=== PATIENT | female | born 1965 | race Caucasian/White ===

== ENCOUNTER 2019-01-20 10:41 | Inpatient (IN) ==
--- NOTE | 2019-01-20 10:48 | Emergency Department Note ---
Disposition Clinical Impression: Atrial fibrillation with rapid ventricular response, Tumor DKA (diabetic ketoacidoses) Qualifiers: Diabetes mellitus type: type 1 Diabetes mellitus complication detail: without coma Qualified Code(s): E10.10 - Type 1 diabetes mellitus with ketoacidosis without coma Disposition: Admitted As Inpatient Condition: Serious Time of Disposition: 18:05 General Adult HPI - General Stated complaint: high blood sugar Time Seen by Provider: 01/20/19 10:42 Nursing Notes Reviewed: Yes Vital Signs Reviewed: Yes - Related Data Home Medications Medication Instructions Recorded Confirmed Tizanidine HCl [Zanaflex] 4 mg PO TID PRN 01/17/19 01/20/19 Amoxicillin [Amoxil] 500 mg PO BID 01/20/19 01/20/19 Lisinopril/Hydrochlorothiazide 1 each PO DAILY 01/20/19 01/20/19 [Lisinopril-Hctz 10-12.5 mg Tab] Pioglitazone [Actos] 30 mg PO DAILY 01/20/19 01/20/19 Previous Rx's Medication Instructions Recorded metFORMIN [Glucophage] 500 mg PO BIDWM #14 tablet 01/17/19 Allergies Allergy/AdvReac Type Severity Reaction Status Date / Time No Known Allergies Allergy Verified 01/17/19 11:32 Past Medical History - Past Medical History Medical history: Reports: no medical history Psychiatric history: Reports: no psych history - Social History Smoking Status: Never smoker Smokeless Tobacco Status: No Alcohol use: Reports: none Drug use: Reports: unknown Course Vital Signs Temperature 98.3 F 01/20/19 11:08 Pulse Rate 141 01/20/19 11:08 Respiratory Rate 30 01/20/19 11:08 Blood Pressure 155/107 01/20/19 11:08 O2 Sat by Pulse Oximetry 100 01/20/19 11:08 Temperature 97.6 F 01/20/19 16:15 Pulse Rate 120 01/20/19 17:00 Respiratory Rate 29 01/20/19 17:00 Blood Pressure 138/70 01/20/19 17:00 O2 Sat by Pulse Oximetry 95 01/20/19 17:00 Oxygen Delivery Oxygen Delivery Nasal Cannula Medical Decision Making - MDM Narrative Medical decision making narrative: 1455 hrs.: Still pending a lactate and beta hydroxybutyrate from labs were called and asked him about that. Since she has had a recent UTI with a 22,000 white count were in a go ahead and start her on Rocephin here urine to be cultured blood is cultured. She has gotten 3 L of fluids. She is getting insulin. And she will need admission. 1500 hrs.: Patient was tachycardic on the monitor repeated an EKG and she is in A. fib with RVR rates in the 170s. I have looked through her chart and I do not see a history of atrial fibrillation. We will see if we get another IV in her and started on some Cardizem in addition to the medication she is on now. 1540 hrs.: Repeat EKG shows a sinus tachycardia with a rate of 120 has a QRS of 83 QTc of 45 does have a left axis deviation and low voltage throughout no signs of acute ischemia or ectopy. Did have atrial fibrillation and that has now resolved since patient is on fluids and diltiazem. Chest X-Ray 01/20/19 10:43 IMPRESSION: Normal chest. 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 Surgical consultation is recommended. No acute vascular abnormality. Nonspecific 3 mm right lower lobe nodule. D/ / 01/20/2019 15:02:28 Sterling Ugalde MD / trey Interpreting Provider: Sterling Ugalde MD 1545 hrs. lactate is normal but was drawn after she had 3 L of fluid. Also her beta hydroxybutyrate is elevated along with her blood sugar and acidosis consistent with DKA. Were paging surgery to discuss with them this mass and then bringing her into the hospital for admission. EKG from 1500 hrs. shows a atrial fibrillation with a rate of 177, QRS of 84, QTC 445, appears to be a slight left axis deviation. No ectopy. - Lab Data Result diagrams: 01/20/19 13:01 01/20/19 16:55 Lab Results 01/20/19 01/20/19 01/20/19 Range/Units 10:50 11:50 12:03 WBC (4.3-11.1) K/mcL RBC (3.82-4.97) M/mcL Hgb (11.5-15.4) g/dL Hct (35.3-44.9) % MCV (83.0-100.0) fL MCH (28.0-33.3) pg MCHC (31.6-35.5) g/dL RDW (11.5-14.5) % Plt Count (140-400) K/mcL MPV (9.4-12.4) fL Seg Neutrophils % % Band Neutrophils % (0-4) % Lymphocytes % % Monocytes % % Neutrophils # (1.6-8.9) K/mcL Lymphocytes # (0.6-4.6) K/mcL Monocytes # (0.0-1.3) K/mcL Platelet Estimate (Normal) VBG pH (7.32-7.42) pH Units VBG pCO2 (41-51) mmHg VBG pO2 (25-50) mmHg VBG HCO3 (21-27) mEq/L Sodium 132 L (136-145) mEq/L Potassium 3.6 (3.5-5.1) mEq/L Chloride 102 (98-107) mEq/L Carbon Dioxide 4 L* (23-29) mEq/L BUN 12 (6-20) mg/dL Creatinine 0.76 (0.60-1.20) mg/dL Est GFR ( Amer) > 60 (> 60) Est GFR (Non-Af Amer) > 60 (> 60) BUN/Creatinine Ratio 16 (6-26) Glucose 432 H (70-105) mg/dL Calculated Osmolality 292 (280-300) Lactic Acid (0.5-2.2) mmol/L Calcium 9.3 (8.6-10.3) mg/dL Total Bilirubin 0.3 (0.3-1.0) mg/dL AST 7 L (13-39) Units/L ALT 8 (7-52) Units/L Alkaline Phosphatase 82 (34-104) Units/L Troponin I 0.03 (< 0.04) ng/mL Serum Total Protein 7.9 (6.4-8.9) g/dL Albumin 3.0 L (3.5-5.7) g/dL Globulin 4.9 H (2.4-3.5) g/dL Albumin/Globulin Ratio 0.6 L (1.1-2.2) Beta-Hydroxybutyric Acd (0.02-0.27) mmol/L Urine Color Yellow (Yellow) Urine Clarity Turbid A (Clear) Urine pH 5.5 (5.0-8.0) pH Units Ur Specific [place] 1.021 (1.010-1.025) Urine Protein 100 H (Neg-Trace) mg/dL Urine Glucose (UA) >=1000 H (Normal) mg/dL Urine Ketones >=160 H (Negative) mg/dL Urine Blood Moderate H (Negative) Urine Nitrite Negative (Negative) Urine Bilirubin Negative (Negative) Urine Urobilinogen Normal (Normal) mg/dL Ur Leukocyte Esterase Large H (Negative) Urine Microscopic RBC 5-15 H (0-3) per hpf Urine Microscopic WBC TNTC H (0-3) per hpf Ur Squamous Epith Cells Moderate H (None-Few) per lpf Urine Bacteria None Seen (None-Few) per hpf Hyaline Casts None Seen (None-Few) per lpf Urine Yeast Moderate H (None Seen) per hpf Ur Culture Indicated? YES A (NO) Urine Opiates Screen Negative (Nghnpc=053) ng/mL Ur Buprenorphine Scrn Negative (Cutoff=5) ng/mL Ur Barbiturates Screen Negative (Pbypto=636) ng/mL Ur Phencyclidine Scrn Negative (Cutoff=25) ng/mL Ur Amphetamines Screen Negative (Tlisxu=1692) ng/mL U Benzodiazepines Scrn Negative (Gkuemj=368) ng/mL Urine Cocaine Screen Negative (Cutoff= 300) ng/mL U Marijuana (THC) Screen Negative (Cutoff = 50) ng/mL Ur Drug Screen Interp See Below Specimen Rejected Person Notif of Crit 01/20/19 01/20/19 01/20/19 Range/Units 12:17 12:35 13:01 WBC 22.6 H D (4.3-11.1) K/mcL RBC 4.69 (3.82-4.97) M/mcL Hgb 12.4 (11.5-15.4) g/dL Hct 42.5 (35.3-44.9) % MCV 90.6 D (83.0-100.0) fL MCH 26.4 L (28.0-33.3) pg MCHC 29.2 L (31.6-35.5) g/dL RDW 13.2 (11.5-14.5) % Plt Count 395 (140-400) K/mcL MPV 9.7 (9.4-12.4) fL Seg Neutrophils % 84.0 % Band Neutrophils % 8.0 H (0-4) % Lymphocytes % 2.0 % Monocytes % 6.0 % Neutrophils # 20.8 H (1.6-8.9) K/mcL Lymphocytes # 0.5 L (0.6-4.6) K/mcL Monocytes # 1.4 H (0.0-1.3) K/mcL Platelet Estimate Normal (Normal) VBG pH 7.14 L* (7.32-7.42) pH Units VBG pCO2 14 L (41-51) mmHg VBG pO2 171 H (25-50) mmHg VBG HCO3 5 L (21-27) mEq/L Sodium (136-145) mEq/L Potassium (3.5-5.1) mEq/L Chloride (98-107) mEq/L Carbon Dioxide (23-29) mEq/L BUN (6-20) mg/dL Creatinine (0.60-1.20) mg/dL Est GFR ( Amer) (> 60) Est GFR (Non-Af Amer) (> 60) BUN/Creatinine Ratio (6-26) Glucose (70-105) mg/dL Calculated Osmolality (280-300) Lactic Acid (0.5-2.2) mmol/L Calcium (8.6-10.3) mg/dL Total Bilirubin (0.3-1.0) mg/dL AST (13-39) Units/L ALT (7-52) Units/L Alkaline Phosphatase (34-104) Units/L Troponin I (< 0.04) ng/mL Serum Total Protein (6.4-8.9) g/dL Albumin (3.5-5.7) g/dL Globulin (2.4-3.5) g/dL Albumin/Globulin Ratio (1.1-2.2) Beta-Hydroxybutyric Acd (0.02-0.27) mmol/L Urine Color (Yellow) Urine Clarity (Clear) Urine pH (5.0-8.0) pH Units Ur Specific [place] (1.010-1.025) Urine Protein (Neg-Trace) mg/dL Urine Glucose (UA) (Normal) mg/dL Urine Ketones (Negative) mg/dL Urine Blood (Negative) Urine Nitrite (Negative) Urine Bilirubin (Negative) Urine Urobilinogen (Normal) mg/dL Ur Leukocyte Esterase (Negative) Urine Microscopic RBC (0-3) per hpf Urine Microscopic WBC (0-3) per hpf Ur Squamous Epith Cells (None-Few) per lpf Urine Bacteria (None-Few) per hpf Hyaline Casts (None-Few) per lpf Urine Yeast (None Seen) per hpf Ur Culture Indicated? (NO) Urine Opiates Screen (Kffipp=328) ng/mL Ur Buprenorphine Scrn (Cutoff=5) ng/mL Ur Barbiturates Screen (Ohhgds=655) ng/mL Ur Phencyclidine Scrn (Cutoff=25) ng/mL Ur Amphetamines Screen (Xrjfas=6846) ng/mL U Benzodiazepines Scrn (Wqiczy=895) ng/mL Urine Cocaine Screen (Cutoff= 300) ng/mL U Marijuana (THC) Screen (Cutoff = 50) ng/mL Ur Drug Screen Interp Specimen Rejected MCV Delta Person Notif of Emily VEGA 01/20/19 01/20/19 Range/Units 15:12 15:12 WBC (4.3-11.1) K/mcL RBC (3.82-4.97) M/mcL Hgb (11.5-15.4) g/dL Hct (35.3-44.9) % MCV (83.0-100.0) fL MCH (28.0-33.3) pg MCHC (31.6-35.5) g/dL RDW (11.5-14.5) % Plt Count (140-400) K/mcL MPV (9.4-12.4) fL Seg Neutrophils % % Band Neutrophils % (0-4) % Lymphocytes % % Monocytes % % Neutrophils # (1.6-8.9) K/mcL Lymphocytes # (0.6-4.6) K/mcL Monocytes # (0.0-1.3) K/mcL Platelet Estimate (Normal) VBG pH (7.32-7.42) pH Units VBG pCO2 (41-51) mmHg VBG pO2 (25-50) mmHg VBG HCO3 (21-27) mEq/L Sodium (136-145) mEq/L Potassium (3.5-5.1) mEq/L Chloride (98-107) mEq/L Carbon Dioxide (23-29) mEq/L BUN (6-20) mg/dL Creatinine (0.60-1.20) mg/dL Est GFR ( Amer) (> 60) Est GFR (Non-Af Amer) (> 60) BUN/Creatinine Ratio (6-26) Glucose (70-105) mg/dL Calculated Osmolality (280-300) Lactic Acid 1.3 (0.5-2.2) mmol/L Calcium (8.6-10.3) mg/dL Total Bilirubin (0.3-1.0) mg/dL AST (13-39) Units/L ALT (7-52) Units/L Alkaline Phosphatase (34-104) Units/L Troponin I (< 0.04) ng/mL Serum Total Protein (6.4-8.9) g/dL Albumin (3.5-5.7) g/dL Globulin (2.4-3.5) g/dL Albumin/Globulin Ratio (1.1-2.2) Beta-Hydroxybutyric Acd > 2.00 H (0.02-0.27) mmol/L Urine Color (Yellow) Urine Clarity (Clear) Urine pH (5.0-8.0) pH Units Ur Specific [place] (1.010-1.025) Urine Protein (Neg-Trace) mg/dL Urine Glucose (UA) (Normal) mg/dL Urine Ketones (Negative) mg/dL Urine Blood (Negative) Urine Nitrite (Negative) Urine Bilirubin (Negative) Urine Urobilinogen (Normal) mg/dL Ur Leukocyte Esterase (Negative) Urine Microscopic RBC (0-3) per hpf Urine Microscopic WBC (0-3) per hpf Ur Squamous Epith Cells (None-Few) per lpf Urine Bacteria (None-Few) per hpf Hyaline Casts (None-Few) per lpf Urine Yeast (None Seen) per hpf Ur Culture Indicated? (NO) Urine Opiates Screen (Xhtcos=972) ng/mL Ur Buprenorphine Scrn (Cutoff=5) ng/mL Ur Barbiturates Screen (Xwysvc=662) ng/mL Ur Phencyclidine Scrn (Cutoff=25) ng/mL Ur Amphetamines Screen (Xxnyzl=1105) ng/mL U Benzodiazepines Scrn (Qjggqk=484) ng/mL Urine Cocaine Screen (Cutoff= 300) ng/mL U Marijuana (THC) Screen (Cutoff = 50) ng/mL Ur Drug Screen Interp Specimen Rejected Person Notif of Crit Critical Care Time Critical Care Time: Yes Total Critical Care Time: 50 Attestation: Chest X-Ray 01/20/19 10:43 IMPRESSION: Normal chest. 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 Surgical consultation is recommended. No acute vascular abnormality. Nonspecific 3 mm right lower lobe nodule. D/ / Sterling Ugalde MD / Sterling Ugalde MD Interpreting Provider: Sterling Ugalde MD 1500 hrs.: We will admit the patient through hospitalist service. Also we will speak with surgery about this mucinous tumor. Attestation Statement - Attestation Attestation: This documentation is done with the assistance of Dragon dictation. Despite efforts made to ensure accuracy, there may be inaccuracies in pump installer or spelling and typographical errors. I examined this patient and my medical decision-making was reviewed with the Resident Physician. I agree with the documented findings, disposition and treatment plan as described except to the extent set forth below. Patient was seen and evaluated by Dr. Solano I agree with their evaluation and management plan, I supervised care the patient's stay. Patient presents by EMS secondary to elevated blood sugar and not feeling well. She is a diabetic who just started on insulin. She is also has a UTI and is being treated for that currently. She appears very dry. Sugars in the 300s. We will order workup on her and most likely she will need admitted. I reviewed the residents documentation and agree with the residents assessment and plan of care. I have personally had face to face time with the patient. (Brief History, Brief Exam, and MDM) I personally supervised and was present for the hernandez/critical portions of the following procedures completed by the resident: EKG was interpreted by the resident under my supervision, I agree with their interpretation.
--- NOTE | 2019-01-20 10:50 | Emergency Department Note ---
Disposition Clinical Impression: Atrial fibrillation with rapid ventricular response, Tumor DKA (diabetic ketoacidoses) Qualifiers: Diabetes mellitus type: other specified (including ANTHONY) Diabetes mellitus complication detail: without coma Qualified Code(s): E13.10 - Other specified diabetes mellitus with ketoacidosis without coma Disposition: Admitted As Inpatient Condition: Serious Time of Disposition: 16:25 General Adult HPI - General Stated complaint: high blood sugar Time Seen by Provider: 01/20/19 10:42 Source: patient, EMS Mode of arrival: EMS Limitations: no limitations Nursing Notes Reviewed: Yes Vital Signs Reviewed: Yes - History of Present Illness HPI Narrative: Patient is a 53-year-old female that presents emergency department due to not feeling well. Patient states that her blood sugar has been high at home. She states for the last 4 days her blood sugar has been as high as 500. Patient states that she was recently started on insulin. Patient also reports that she was diagnosed the urinary tract infection approximately 2 days ago and has taken 1 day worth of antibiotics. Patient denies any chest pain. Patient states that she has not been vomiting or having any diarrhea. Patient states that she just does not feel well. EMS reported that her blood sugar was 311 prior to arrival. Patient is unsure which antibiotic that she is on for her urinary tract infection. - Related Data Home Medications Medication Instructions Recorded Confirmed Tizanidine HCl [Zanaflex] 4 mg PO TID 01/17/19 01/17/19 Lisinopril/Hydrochlorothiazide 1 each PO DAILY 01/20/19 01/20/19 [Lisinopril-Hctz 10-12.5 mg Tab] Pioglitazone [Actos] 30 mg PO DAILY 01/20/19 01/20/19 Previous Rx's Medication Instructions Recorded metFORMIN [Glucophage] 500 mg PO BIDWM #14 tablet 01/17/19 Allergies Allergy/AdvReac Type Severity Reaction Status Date / Time No Known Allergies Allergy Verified 01/17/19 11:32 All systems ED: reviewed and negative except as stated. Constitutional: Reports: weakness. Denies: fever Cardiovascular: Denies: chest pain Respiratory: Denies: dyspnea Gastrointestinal: Denies: abdominal pain, nausea, vomiting Neurological: Denies: weakness, numbness, paresthesias Past Medical History - Past Medical History Medical history: Reports: no medical history Psychiatric history: Reports: no psych history - Social History Smoking Status: Never smoker Smokeless Tobacco Status: No Alcohol use: Reports: none Drug use: Reports: unknown Physical Exam - General Limitations: no limitations General appearance: alert, in no apparent distress - Head Head exam: atraumatic, normocephalic - Eye Eye exam: Present: normal appearance, EOMI - ENT ENT exam: mucous membranes dry - Neck Neck exam: Present: normal inspection, full ROM, trachea midline - Respiratory Respiratory exam: Present: normal lung sounds bilaterally, other (Tachypneic). Absent: respiratory distress, wheezes - Cardiovascular Cardiovascular exam: Present: regular rate, normal rhythm, normal heart sounds, +S1, +S2 - Abdominal Exam Abdominal exam: Present: soft, normal bowel sounds, other (Patient has what feels like a palpable mass to the left abdomen.) - Neurological Exam Neurological exam: Present: alert, oriented X3 - Psychiatric Psychiatric exam: Present: normal affect, normal mood - Skin Skin exam: Present: warm, dry, other (Skin irritation to between the gluteal cleft. ) Course Vital Signs Temperature 98.3 F 01/20/19 11:08 Pulse Rate 141 01/20/19 11:08 Respiratory Rate 30 01/20/19 11:08 Blood Pressure 155/107 01/20/19 11:08 O2 Sat by Pulse Oximetry 100 01/20/19 11:08 Temperature 100.1 F H 01/20/19 11:34 Pulse Rate 126 01/20/19 15:45 Respiratory Rate 27 01/20/19 15:45 Blood Pressure 138/106 01/20/19 15:45 O2 Sat by Pulse Oximetry 97 01/20/19 15:45 Oxygen Delivery Oxygen Delivery Nasal Cannula Medical Decision Making - [facility] Narrative Medical decision making narrative: Due the patient is not emergency Department with reports of elevated blood glucose reading and recently been diagnosed with diabetes there is a high suspicion for possible DKA. Patient's laboratory testing shows a pH of 7.14 with an anion gap of 26 and a beta hydroxybutyric acid greater than 2. The patient is in DKA. The patient was started on IV fluids. Patient is received 2 L of IV fluids and was started on a third. Patient does have a significant elevated white blood cell count. Her urinalysis does not show bacteria in her urine however has recently been started on antibiotics. Patient be given a gram or Rocephin due to decreased recently been diagnosed with a urinary tract infection. Patient's chest x-ray not showing any acute cardial ulnar process. 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 Acute care surgeries contacted and will see the patient in consult. Patient will be given IV potassium and started on fluids with potassium in them. Patient did have an EKG that showed atrial fibrillation with rapid ventricular response. Patient was given a bolus of diltiazem and started on diltiazem drip. The patient suddenly converted to a sinus rhythm. The insulin drip will be continued once the patient is in the ICU. I called and spoke with the admitting physician of the ICU Dr. Lunsford and he is except the patient their service. Patient be admitted to the hospital this time for further evaluation and management. - Medical Records Medical records reviewed: Yes I reviewed the patient's medical records. - Lab Data Lab results reviewed: Yes I reviewed the patient's lab results. Result diagrams: 01/20/19 13:01 01/20/19 12:03 Lab Results 01/20/19 01/20/19 01/20/19 Range/Units 10:50 11:50 12:03 WBC (4.3-11.1) K/mcL RBC (3.82-4.97) M/mcL Hgb (11.5-15.4) g/dL Hct (35.3-44.9) % MCV (83.0-100.0) fL MCH (28.0-33.3) pg MCHC (31.6-35.5) g/dL RDW (11.5-14.5) % Plt Count (140-400) K/mcL MPV (9.4-12.4) fL Seg Neutrophils % % Band Neutrophils % (0-4) % Lymphocytes % % Monocytes % % Neutrophils # (1.6-8.9) K/mcL Lymphocytes # (0.6-4.6) K/mcL Monocytes # (0.0-1.3) K/mcL Platelet Estimate (Normal) VBG pH (7.32-7.42) pH Units VBG pCO2 (41-51) mmHg VBG pO2 (25-50) mmHg VBG HCO3 (21-27) mEq/L Sodium 132 L (136-145) mEq/L Potassium 3.6 (3.5-5.1) mEq/L Chloride 102 (98-107) mEq/L Carbon Dioxide 4 L* (23-29) mEq/L BUN 12 (6-20) mg/dL Creatinine 0.76 (0.60-1.20) mg/dL Est GFR ( Amer) > 60 (> 60) Est GFR (Non-Af Amer) > 60 (> 60) BUN/Creatinine Ratio 16 (6-26) Glucose 432 H (70-105) mg/dL Calculated Osmolality 292 (280-300) Lactic Acid (0.5-2.2) mmol/L Calcium 9.3 (8.6-10.3) mg/dL Total Bilirubin 0.3 (0.3-1.0) mg/dL AST 7 L (13-39) Units/L ALT 8 (7-52) Units/L Alkaline Phosphatase 82 (34-104) Units/L Troponin I 0.03 (< 0.04) ng/mL Serum Total Protein 7.9 (6.4-8.9) g/dL Albumin 3.0 L (3.5-5.7) g/dL Globulin 4.9 H (2.4-3.5) g/dL Albumin/Globulin Ratio 0.6 L (1.1-2.2) Beta-Hydroxybutyric Acd (0.02-0.27) mmol/L Urine Color Yellow (Yellow) Urine Clarity Turbid A (Clear) Urine pH 5.5 (5.0-8.0) pH Units Ur Specific [place] 1.021 (1.010-1.025) Urine Protein 100 H (Neg-Trace) mg/dL Urine Glucose (UA) >=1000 H (Normal) mg/dL Urine Ketones >=160 H (Negative) mg/dL Urine Blood Moderate H (Negative) Urine Nitrite Negative (Negative) Urine Bilirubin Negative (Negative) Urine Urobilinogen Normal (Normal) mg/dL Ur Leukocyte Esterase Large H (Negative) Urine Microscopic RBC 5-15 H (0-3) per hpf Urine Microscopic WBC TNTC H (0-3) per hpf Ur Squamous Epith Cells Moderate H (None-Few) per lpf Urine Bacteria None Seen (None-Few) per hpf Hyaline Casts None Seen (None-Few) per lpf Urine Yeast Moderate H (None Seen) per hpf Ur Culture Indicated? YES A (NO) Urine Opiates Screen Negative (Eptibt=772) ng/mL Ur Buprenorphine Scrn Negative (Cutoff=5) ng/mL Ur Barbiturates Screen Negative (Mxatmc=323) ng/mL Ur Phencyclidine Scrn Negative (Cutoff=25) ng/mL Ur Amphetamines Screen Negative (Bhhmpp=4896) ng/mL U Benzodiazepines Scrn Negative (Ujvkjz=605) ng/mL Urine Cocaine Screen Negative (Cutoff= 300) ng/mL U Marijuana (THC) Screen Negative (Cutoff = 50) ng/mL Ur Drug Screen Interp See Below Specimen Rejected Person Notif of Crit 01/20/19 01/20/19 01/20/19 Range/Units 12:17 12:35 13:01 WBC 22.6 H D (4.3-11.1) K/mcL RBC 4.69 (3.82-4.97) M/mcL Hgb 12.4 (11.5-15.4) g/dL Hct 42.5 (35.3-44.9) % MCV 90.6 D (83.0-100.0) fL MCH 26.4 L (28.0-33.3) pg MCHC 29.2 L (31.6-35.5) g/dL RDW 13.2 (11.5-14.5) % Plt Count 395 (140-400) K/mcL MPV 9.7 (9.4-12.4) fL Seg Neutrophils % 84.0 % Band Neutrophils % 8.0 H (0-4) % Lymphocytes % 2.0 % Monocytes % 6.0 % Neutrophils # 20.8 H (1.6-8.9) K/mcL Lymphocytes # 0.5 L (0.6-4.6) K/mcL Monocytes # 1.4 H (0.0-1.3) K/mcL Platelet Estimate Normal (Normal) VBG pH 7.14 L* (7.32-7.42) pH Units VBG pCO2 14 L (41-51) mmHg VBG pO2 171 H (25-50) mmHg VBG HCO3 5 L (21-27) mEq/L Sodium (136-145) mEq/L Potassium (3.5-5.1) mEq/L Chloride (98-107) mEq/L Carbon Dioxide (23-29) mEq/L BUN (6-20) mg/dL Creatinine (0.60-1.20) mg/dL Est GFR ( Amer) (> 60) Est GFR (Non-Af Amer) (> 60) BUN/Creatinine Ratio (6-26) Glucose (70-105) mg/dL Calculated Osmolality (280-300) Lactic Acid (0.5-2.2) mmol/L Calcium (8.6-10.3) mg/dL Total Bilirubin (0.3-1.0) mg/dL AST (13-39) Units/L ALT (7-52) Units/L Alkaline Phosphatase (34-104) Units/L Troponin I (< 0.04) ng/mL Serum Total Protein (6.4-8.9) g/dL Albumin (3.5-5.7) g/dL Globulin (2.4-3.5) g/dL Albumin/Globulin Ratio (1.1-2.2) Beta-Hydroxybutyric Acd (0.02-0.27) mmol/L Urine Color (Yellow) Urine Clarity (Clear) Urine pH (5.0-8.0) pH Units Ur Specific [place] (1.010-1.025) Urine Protein (Neg-Trace) mg/dL Urine Glucose (UA) (Normal) mg/dL Urine Ketones (Negative) mg/dL Urine Blood (Negative) Urine Nitrite (Negative) Urine Bilirubin (Negative) Urine Urobilinogen (Normal) mg/dL Ur Leukocyte Esterase (Negative) Urine Microscopic RBC (0-3) per hpf Urine Microscopic WBC (0-3) per hpf Ur Squamous Epith Cells (None-Few) per lpf Urine Bacteria (None-Few) per hpf Hyaline Casts (None-Few) per lpf Urine Yeast (None Seen) per hpf Ur Culture Indicated? (NO) Urine Opiates Screen (Wmyyzc=671) ng/mL Ur Buprenorphine Scrn (Cutoff=5) ng/mL Ur Barbiturates Screen (Mdwmgj=208) ng/mL Ur Phencyclidine Scrn (Cutoff=25) ng/mL Ur Amphetamines Screen (Izcymg=0754) ng/mL U Benzodiazepines Scrn (Cjgvbt=392) ng/mL Urine Cocaine Screen (Cutoff= 300) ng/mL U Marijuana (THC) Screen (Cutoff = 50) ng/mL Ur Drug Screen Interp Specimen Rejected MCV Delta Person Notif of Emily VEGA 09/07/19 09/07/19 Range/Units 15:12 15:12 WBC (4.3-11.1) K/mcL RBC (3.82-4.97) M/mcL Hgb (11.5-15.4) g/dL Hct (35.3-44.9) % MCV (83.0-100.0) fL MCH (28.0-33.3) pg MCHC (31.6-35.5) g/dL RDW (11.5-14.5) % Plt Count (140-400) K/mcL MPV (9.4-12.4) fL Seg Neutrophils % % Band Neutrophils % (0-4) % Lymphocytes % % Monocytes % % Neutrophils # (1.6-8.9) K/mcL Lymphocytes # (0.6-4.6) K/mcL Monocytes # (0.0-1.3) K/mcL Platelet Estimate (Normal) VBG pH (7.32-7.42) pH Units VBG pCO2 (41-51) mmHg VBG pO2 (25-50) mmHg VBG HCO3 (21-27) mEq/L Sodium (136-145) mEq/L Potassium (3.5-5.1) mEq/L Chloride (98-107) mEq/L Carbon Dioxide (23-29) mEq/L BUN (6-20) mg/dL Creatinine (0.60-1.20) mg/dL Est GFR ( Amer) (> 60) Est GFR (Non-Af Amer) (> 60) BUN/Creatinine Ratio (6-26) Glucose (70-105) mg/dL Calculated Osmolality (280-300) Lactic Acid 1.3 (0.5-2.2) mmol/L Calcium (8.6-10.3) mg/dL Total Bilirubin (0.3-1.0) mg/dL AST (13-39) Units/L ALT (7-52) Units/L Alkaline Phosphatase (34-104) Units/L Troponin I (< 0.04) ng/mL Serum Total Protein (6.4-8.9) g/dL Albumin (3.5-5.7) g/dL Globulin (2.4-3.5) g/dL Albumin/Globulin Ratio (1.1-2.2) Beta-Hydroxybutyric Acd > 2.00 H (0.02-0.27) mmol/L Urine Color (Yellow) Urine Clarity (Clear) Urine pH (5.0-8.0) pH Units Ur Specific [place] (1.010-1.025) Urine Protein (Neg-Trace) mg/dL Urine Glucose (UA) (Normal) mg/dL Urine Ketones (Negative) mg/dL Urine Blood (Negative) Urine Nitrite (Negative) Urine Bilirubin (Negative) Urine Urobilinogen (Normal) mg/dL Ur Leukocyte Esterase (Negative) Urine Microscopic RBC (0-3) per hpf Urine Microscopic WBC (0-3) per hpf Ur Squamous Epith Cells (None-Few) per lpf Urine Bacteria (None-Few) per hpf Hyaline Casts (None-Few) per lpf Urine Yeast (None Seen) per hpf Ur Culture Indicated? (NO) Urine Opiates Screen (Fevetd=228) ng/mL Ur Buprenorphine Scrn (Cutoff=5) ng/mL Ur Barbiturates Screen (Fsmqzt=648) ng/mL Ur Phencyclidine Scrn (Cutoff=25) ng/mL Ur Amphetamines Screen (Nnwwjf=0893) ng/mL U Benzodiazepines Scrn (Frzfby=525) ng/mL Urine Cocaine Screen (Cutoff= 300) ng/mL U Marijuana (THC) Screen (Cutoff = 50) ng/mL Ur Drug Screen Interp Specimen Rejected Person Notif of Crit - Radiology Data Radiology results reviewed: Yes I reviewed the patient's radiology results. Chest X-Ray 01/20/19 10:43 IMPRESSION: Normal chest. 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 Surgical consultation is recommended. No acute vascular abnormality. Nonspecific 3 mm right lower lobe nodule. D/ / 01/20/2019 15:02:28 Sterling Ugalde MD / [facility] Interpreting Provider: Sterling Ugalde MD - EKG Data EKG #1 EKG attestation: Yes I reviewed and interpreted this EKG. EKG results narrative: Patient's EKG at 1147 shows a sinus tachycardia at a rate of 151 bpm, HI interval 107, QRS duration 93, QTC of 441. There is no evidence of STEMI on EKG. EKG #2 EKG attestation: Yes I reviewed and interpreted this EKG. EKG results narrative: Patient's EKG at 1147 shows a sinus tachycardia at a rate of 151 bpm, HI interval 107, QRS duration 93, QTC of 441. There is no evidence of STEMI on EKG.
[2019-01-20 11:09] LABS: Amphetamine Screen,Urine Negative ng/mL (Cutoff=1000); Barbiturate Screen,Urine Negative ng/mL (Cutoff=200); Benzodiazepines Screen,Urine Negative ng/mL (Cutoff=200); Cannabinoid Screen,Urine Negative ng/mL (Cutoff = 50); Cocaine Screen,Urine Negative ng/mL (Cutoff= 300); Opiate Screen,Urine Negative ng/mL (Cutoff=300); Phencyclidine Screen,Urine Negative ng/mL (Cutoff=25)
[2019-01-20] MEDS: 0.9 % Sodium Chloride 1,000 ML IVC SCH ×2 (11:33→11:47)
[2019-01-20] MEDS ORDERED: Isovue-370 500 ML BOTTLE IVP ONE (11:37)
[2019-01-20] MEDS ORDERED: *HR* FentaNYL (PF) 100 MCG/2 ML VIAL IVP ONE (12:06)
[2019-01-20 12:13] LABS: Bilirubin,Urine Negative (Negative); Blood,Urine Moderate (Negative); Clarity,Urine Turbid (Clear); Color,Urine Yellow (Yellow); Glucose,Urine (UA) >=1000 mg/dL (Normal); Ketones,Urine >=160 mg/dL (Negative); Leukocyte Esterase,Urine Large (Negative); Nitrite,Urine Negative (Negative); PH,Urine 5.5 pH Units (5.0-8.0); Protein,Urine 100 mg/dL (Neg-Trace); Specific Gravity,Urine 1.021 (1.010-1.025); Urobilinogen,Urine Normal (Normal)
[2019-01-20 12:16] LABS: Bacteria,Urine None Seen per hpf (None-Few); Hyaline Casts,Urine None Seen per lpf (None-Few); Squamous Epithelial Cell,Urine Moderate per lpf (None-Few); WBC,Urine TNTC per hpf (0-3)
[2019-01-20 12:32] LABS: VBG HCO3 5 mEq/L (21-27); VBG PCO2 14 mmHg (41-51); VBG PH 7.14 pH Units (7.32-7.42); VBG PO2 171 mmHg (25-50)
[2019-01-20 12:38] LABS: Yeast,Urine Moderate per hpf (None Seen)
[2019-01-20 12:48] LABS: Alanine Aminotransferase 8 Units/L (7-52); Albumin/Globulin Ratio 0.6 (1.1-2.2); Alkaline Phosphatase 82 Units/L (34-104); Aspartate Amino Transferase 7 Units/L (13-39); BUN/Creatinine Ratio 16 (6-26); Bilirubin,Total 0.3 mg/dL (0.3-1.0); Blood Urea Nitrogen 12 mg/dL (6-20); Calcium 9.3 mg/dL (8.6-10.3); Carbon Dioxide 4 mEq/L (23-29); Chloride 102 mEq/L (98-107); Globulin 4.9 g/dL (2.4-3.5); Glucose 432 mg/dL (70-105); Osmolality,Calculated 292 (280-300); Potassium 3.6 mEq/L (3.5-5.1); Sodium 132 mEq/L (136-145); Total Protein 7.9 g/dL (6.4-8.9); Troponin I 0.03 ng/mL (< 0.04); eGFR For African Americans > 60 (> 60); eGFR For Non-African Americans > 60 (> 60)
[2019-01-20] MEDS ORDERED: Acetaminophen 325 MG TABLET PO ONE (13:14)
[2019-01-20] MEDS ORDERED: 0.9 % Sodium Chloride 1,000 ML IVC ONE (13:14)
[2019-01-20] MEDS ORDERED: *HR* Dextrose 50 % in Water (Syg) 50 ML SYRINGE IVP PRN ×2 (13:17→15:47)
[2019-01-20 13:27] LABS: Hematocrit 42.5 % (35.3-44.9); Hemoglobin 12.4 g/dL (11.5-15.4); Mean Corpuscular HGB Conc 29.2 g/dL (31.6-35.5); Mean Corpuscular Hemoglobin 26.4 pg (28.0-33.3); Mean Platelet Volume 9.7 fL (9.4-12.4); Platelet Count 395 K/mcL (140-400); Red Blood Count 4.69 M/mcL (3.82-4.97); Red Cell Distribution Width 13.2 % (11.5-14.5)
[2019-01-20 13:39] LABS: White Blood Count 22.6 K/mcL (4.3-11.1)
[2019-01-20 13:40] LABS: Mean Corpuscular Volume 90.6 fL (83.0-100.0)
[2019-01-20 14:01] LABS: Lymphocytes # 0.5 K/mcL (0.6-4.6); Monocytes # 1.4 K/mcL (0.0-1.3); Neutrophils # 20.8 K/mcL (1.6-8.9); Platelet Estimate Normal (Normal)
[2019-01-20] MEDS: Insulin Human Regular 100 UNIT in 0.9 % Sodium Chloride 100 ML IVC SCH ×2 (14:12→19:05)
[2019-01-20] MEDS ORDERED: cefTRIAXone 1,000 MG in Water for inj. (sterile) 10 ML IVP ONE ×2 (14:57→15:47)
[2019-01-20] MEDS: 0.9 % Sodium Chloride w KCl 20 MEQ/1,000 ML MLS IVC SCH ×3 (15:38→22:53)
[2019-01-20] MEDS ORDERED: Ondansetron 4 MG/2 ML VIAL IVP PRN (15:47)
[2019-01-20] MEDS ORDERED: Insulin Regular, Human 100 UNIT/ML IV PRN (15:47)
[2019-01-20] MEDS ORDERED: Naloxone 0.4 MG/ML INJ IVP PRN (15:47)
--- NOTE | 2019-01-20 16:31 | Internal Med History&Physical ---
Date of Encounter: 01/20/19 Time of Encounter: 15:35 Internal Medicine - H&P: HPI Chief complaint: weak, flank pain, high glucose Admitted From: Emergency Dept Plans for Post Hospital Care: Home History of present illness: Ms. Matta is a 53 year old female who presents to the ER today with complaints of weakness, excessive thirst, high glucose, flank pain, and recent diagnosis of diabetes. She has not seen a physician in over 10 years. She presented to urgent care recently with above symptoms and was diagnosed with diabetes. She was started on prescription for Metformin and Actos. However, she has not started either medication yet. Workup in ER included routine labs, which revealed patient to have evidence of DKA. She also has significant UTI. Furthermore, she developed atrial fibrillation with rapid ventricular response. She was fluid resuscitated in the ER with over 3 L of normal saline. She was also started on Cardizem drip. Blood and urine cultures were obtained. She was started on Rocephin for UTI. She was then admitted to hospitalist service in the intensive care unit for ongoing management of her issues. I saw and examined patient in the ER. Her and family are present at bedside. Patient appears acutely ill, intravascularly dry, and has evidence of cold sepsis on exam with cool extremities, warm central torso, and preserved blood pressure. She is tachycardic and appears to be in an irregular rhythm. She is mentating well and conversant. I requested the ER to start her on maintenance fluids with potassium but to hold off on insulin drip until her potassium is corrected, as her potassium will drop further with insulin infusion. I ordered repeat STAT labs, maintenance IV fluids with potassium, and requested we move her to intensive care [facility]. Presently, she has maintained her blood pressure and is mentating well. However, if she decompensates, she may ne ed pressor support and/or intubation. I will repeat her blood gas, albeit with arterial sample rather than venous sample. I explained this to the patient and her family and that she is critical. They understand the critical nature of her condition at this time. There are in full agreement with the plan of care. After I saw and examined patient in ER, I noticed that she had a CT scan in the ER which reveals a large retroperitoneal tumor. I contacted surgery for consultation. I am unaware if she was informed of this by the ER staff, but I will inform her of this finding shortly. Past Med Surg Social Fam HX - Past Medical History Attestation: Yes The following information was validated with the patient. Source: patient, obtained from family Medical history: diabetes (diagnosed last week) Psychiatric history: no psych history - Past Surgical History Surgical History: cholecystectomy - Social History Smoking Status: Never smoker Smokeless Tobacco Status: No Alcohol use: none Drug use: unknown Current living situation: Home, With Family Activity Level: Independent ambulation Recent Out of Country Travel Within the Last 8 Weeks: No - Family History Mother Living Status: Still Living Hx Family Endocrine Disorder: No Father Living Status: Hx Family Cardiac Disorders: Yes Hx Family Endocrine Disorder: No Internal Medicine - H&P: Meds Tizanidine HCl [Zanaflex] 4 mg PO TID PRN 01/17/19 [History] metFORMIN [Glucophage] 500 mg PO BIDWM #14 tablet 01/17/19 [Rx] Lisinopril/Hydrochlorothiazide [Lisinopril-Hctz 10-12.5 mg Tab] 1 each PO DAILY 01/20/19 [History] Pioglitazone [Actos] 30 mg PO DAILY 01/20/19 [History] Allergy/AdvReac Type Severity Reaction Status Date / Time No Known Allergies Allergy Verified 01/17/19 11:32 - Constitutional Constitutional: fatigue, lethargy, weakness, no chills, no fever(s) - EENT Eyes: blurry vision Ears: no ear pain, no tinnitus Nose, mouth and throat: no nasal congestion, no sinus pain, no sinus pressure, no sore throat - Cardiovascular Cardiovascular ROS IM: dyspnea, dyspnea on exertion, irregular heart rhythm, lightheadedness, palpitations, no chest pain, no paroxysmal nocturnal dyspnea, no syncope - Respiratory Respiratory: dyspnea, no cough, no hemoptysis, no chest congestion, no excessive phlegm production, no change in phlegm color, no pain with cough - Gastrointestinal Gastrointestinal: nausea, no abdominal pain, no diarrhea, no hematemesis, no hematochezia, no melena, no vomiting - Genitourinary Genitourinary: dysuria, flank pain, no hematuria - Musculoskeletal Musculoskeletal ROS IM: arthralgias, back pain - Integumentary Integumentary IM: no rash, no jaundice - Neurological Neurological ROS: dizziness, no focal weakness, no frequent falls, no headache(s) - Psychiatric Psychiatric: no anxiety, no depression - Endocrine Endocrine IM: fatigue, polydipsia, polyphagia, polyuria, no cold intolerance, no heat intolerance - Hematologic/Lymphatic Hematologic/Lymphatic: no easy bruising - Allergic/Immunologic Allergic/Immunologic: no GI upset with certain foods - Constitutional Vitals: Temp Pulse Resp BP Pulse Ox 100.1 F H 126 27 138/106 97 01/20/19 11:34 01/20/19 15:45 01/20/19 15:45 01/20/19 15:45 01/20/19 15:45 General appearance: Present: A&O X 3, answers questions appropriately Exam: patient tachypneic, dehdyrated, complaining L flank pain; warm central torso, cool extremities - Head Head exam: Present: atraumatic, normal inspection - Eye Eye exam: Present: EOMI, PERRL. Absent: scleral icterus Pupils: Present: normal accommodation - ENT ENT exam: Present: mucous membranes dry, normal exam, normal oropharynx - Neck Neck exam general surgery: Present: full ROM, supple, trachea midline. Absent: lymphadenopathy, tenderness, nuchal rigidity, thyromegaly - Respiratory Respiratory exam: Present: CTAB, tachypnea. Absent: chest wall tenderness, decreased breath sounds, rales, respiratory distress, rhonchi, wheezes - Cardiovascular Cardiovascular exam: Present: irregular rhythm, +S1, +S2, tachycardia. Absent: diastolic murmur, JVD, systolic murmur - GI/Abdominal GI/Abdominal exam: Present: hypoactive bowel sounds, soft, no peritoneal signs. Absent: guarding, hepatomegaly, rebound, splenomegaly, tenderness - Extremities Exam Extremities exam: Present: full ROM. Absent: calf tenderness, joint swelling, normal capillary refill (markedly delayed ~ 5-6 seconds; cool extremities), mottling, pedal edema, tenderness, warm - Back Exam Back exam: Present: CVA tenderness (L) - Neurological Exam Neurological exam: Present: alert, CN II-XII intact, oriented X3, no focal deficits, strengths equal and symetr throughout - Psychiatric Psychiatric exam: Present: normal affect, normal mood - Skin Skin exam: Present: dry, pallor (peripherally), warm (centrally). Absent: mottled, rash Internal Med - H&P Results - Labs CBC & Chem 7: 01/20/19 13:01 01/20/19 12:03 Labs: Short CBC 01/20/19 Range/Units 13:01 WBC 22.6 H D (4.3-11.1) K/mcL Hgb 12.4 (11.5-15.4) g/dL Hct 42.5 (35.3-44.9) % Plt Count 395 (140-400) K/mcL Neutrophils # 20.8 H (1.6-8.9) K/mcL BMP 01/20/19 12:03 Sodium 132 L Potassium 3.6 Chloride 102 Carbon Dioxide 4 L* BUN 12 Creatinine 0.76 Glucose 432 H Calcium 9.3 Cardiac Enzymes 01/20/19 Range/Units 12:03 Troponin I 0.03 (< 0.04) ng/mL Liver Function 01/20/19 Range/Units 12:03 Total Bilirubin 0.3 (0.3-1.0) mg/dL AST 7 L (13-39) Units/L ALT 8 (7-52) Units/L Alkaline Phosphatase 82 (34-104) Units/L Albumin 3.0 L (3.5-5.7) g/dL Urine 01/20/19 Range/Units 11:50 Urine Color Yellow (Yellow) Urine Clarity Turbid A (Clear) Urine pH 5.5 (5.0-8.0) pH Units Ur Specific [place] 1.021 (1.010-1.025) Urine Protein 100 H (Neg-Trace) mg/dL Urine Glucose (UA) >=1000 H (Normal) mg/dL - ABG Interpretation ABG results: 01/20/19 12:17 VBG pH 7.14 L* VBG pCO2 14 L VBG pO2 171 H VBG HCO3 5 L - EKG Data -: EKG Interpreted by Myself - EKG Data Prior EKG available for review: no EKG comments: 01/20/19 16:55 sinus tach w arrhythmia vs A fib/RVR - Impressions ITS Impressions Chest X-Ray 01/20/19 10:43 IMPRESSION: Normal chest. 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 Surgical consultation is recommended. No acute vascular abnormality. Nonspecific 3 mm right lower lobe nodule. D/ / 01/20/2019 15:02:28 Sterling Ugalde MD / trey Interpreting Provider: Sterling Ugalde MD - Diagnostic Studies Chest x-ray Status: image reviewed by me (negative) - Assessment and Plan (1) DKA (diabetic ketoacidoses) Current Visit: Yes Status: Acute Assessment and plan: 1. Continue MIV w potassium supplementation. 2. Treat hypokalemia. 3. Repeat STAT chemistries and order ABG. 4. Insulin drip per protocol once potassium corrected. 5. Trend chemistries; correct electrolytes as necessary. 6. NPO until anion gap corrects. Qualifiers: Diabetes mellitus type: type 1 Diabetes mellitus complication detail: without coma Qualified Code(s): E10.10 - Type 1 diabetes mellitus with ketoacidosis without coma (2) Sepsis Current Visit: Yes Status: Acute Assessment and plan: 1. Patient received 3000 ml fluid bolus in ER. 2. Initial lactate normal; BP preserved. 3. Continue MIV per DKA protocol. 4. Monitor hemodynamics. 5. Trend lactates and follow cultures. 6. Urine is likely source. 7. Increase Rocephin to 2000mg daily. Qualifiers: Sepsis type: sepsis due to unspecified organism Sepsis acute organ dysfunction status: without acute organ dysfunction Qualified Code(s): A41.9 - Sepsis, unspecified organism (3) UTI (urinary tract infection) Current Visit: Yes Status: Acute Assessment and plan: 1. Urine and blood cultures obtained. 2, Rocephin IV as above 3. Follow cultures and clinical course. Qualifiers: Urinary tract infection type: acute pyelonephritis Qualified Code(s): N10 - Acute pyelonephritis (4) Atrial fibrillation with rapid ventricular response Current Visit: Yes Status: Suspected Assessment and plan: 1. Cardizem drip started in ER. 2. Monitor on telemetry. 3. Repeat EKG after correcting electrolytes. 4. ECHO ordered. 5. Trend troponins. (5) Retroperitoneal tumor Current Visit: Yes Status: Acute Assessment and plan: 1. Incidental finding on CT. 2. Will discuss with patient and . 3. Surgery consulted. 4. Will need work-up after patient sepsis and DKA stabilized. (6) DVT prophylaxis Current Visit: Yes Status: Acute Assessment and plan: 1. Heparin SQ. - Time Spent With Patient Total 55 minutes critical care time spent assessing patient, caring for patient, and coordinating care of patient.
[2019-01-20 17:04] LABS: ABG PCO2 < 13 mmHg (35-45); ABG PO2 107 mmHg (85-104)
[2019-01-20] MEDS: *HR* Heparin 5,000 UNIT/ML VIAL SQ SCH ×2 (17:28→21:32)
[2019-01-20 17:29] LABS: Troponin I 0.03 ng/mL (< 0.04)
[2019-01-20 17:48] LABS: BUN/Creatinine Ratio 15 (6-26); Blood Urea Nitrogen 9 mg/dL (6-20); Calcium 8.4 mg/dL (8.6-10.3); Carbon Dioxide 5 mEq/L (23-29); Chloride 110 mEq/L (98-107); Glucose 315 mg/dL (70-105); Osmolality,Calculated 291 (280-300); Potassium 4.2 mEq/L (3.5-5.1); Sodium 135 mEq/L (136-145); eGFR For African Americans > 60 (> 60); eGFR For Non-African Americans > 60 (> 60)
[2019-01-20 21:20] LABS: ABG PCO2 < 13 mmHg (35-45); ABG PH 7.31 pH Units (7.32-7.45); ABG PO2 98 mmHg (85-104)
[2019-01-20 21:30] LABS: BUN/Creatinine Ratio 12 (6-26); Blood Urea Nitrogen 7 mg/dL (6-20); Calcium 8.4 mg/dL (8.6-10.3); Carbon Dioxide 6 mEq/L (23-29); Chloride 112 mEq/L (98-107); Glucose 277 mg/dL (70-105); Magnesium 1.7 mg/dL (1.6-2.6); Osmolality,Calculated 296 (280-300); Phosphorous 1.6 mg/dL (2.7-4.5); Potassium 2.9 mEq/L (3.5-5.1); Sodium 139 mEq/L (136-145); eGFR For African Americans > 60 (> 60); eGFR For Non-African Americans > 60 (> 60)
[2019-01-20] MEDS: D5% in 0.45% NACL w KCl 20 MEQ/1,000 ML MLS IVC PRN (22:51)
[2019-01-21] MEDS: Insulin Human Regular 100 UNIT in 0.9 % Sodium Chloride 100 ML IVC SCH ×2 (00:30→05:51)
[2019-01-21] MEDS ORDERED: Acetaminophen IV 1,000 MG/100 ML INFUS..BTL IVPB ONE (00:59)
[2019-01-21 02:05] LABS: BUN/Creatinine Ratio 10 (6-26); Blood Urea Nitrogen 5 mg/dL (6-20); Calcium 8.4 mg/dL (8.6-10.3); Carbon Dioxide 14 mEq/L (23-29); Chloride 116 mEq/L (98-107); Glucose 148 mg/dL (70-105); Magnesium 1.9 mg/dL (1.6-2.6); Osmolality,Calculated 292 (280-300); Phosphorous < 1.0 mg/dL (2.7-4.5); Potassium 2.6 mEq/L (3.5-5.1); Sodium 141 mEq/L (136-145); eGFR For African Americans > 60 (> 60); eGFR For Non-African Americans > 60 (> 60)
[2019-01-21] MEDS ORDERED: Potassium Phosphate 44 MEQ in 0.9 % Sodium Chloride 250 ML IVPB ONE (02:13)
[2019-01-21] MEDS: D5% in 0.45% NACL w KCl 20 MEQ/1,000 ML MLS IVC PRN ×2 (02:51→07:26)
[2019-01-21 04:29] LABS: Hematocrit 35.7 % (35.3-44.9); Hemoglobin 11.1 g/dL (11.5-15.4); Mean Corpuscular HGB Conc 31.1 g/dL (31.6-35.5); Mean Corpuscular Hemoglobin 25.6 pg (28.0-33.3); Mean Platelet Volume 9.2 fL (9.4-12.4); Platelet Count 359 K/mcL (140-400); Red Blood Count 4.33 M/mcL (3.82-4.97); Red Cell Distribution Width 13.3 % (11.5-14.5); White Blood Count 12.4 K/mcL (4.3-11.1)
[2019-01-21 04:32] LABS: Mean Corpuscular Volume 82.4 fL (83.0-100.0)
[2019-01-21 04:41] LABS: INR 1.4; Prothrombin Time 15.4 Seconds (9.4-12.1)
[2019-01-21 04:55] LABS: Alanine Aminotransferase 9 Units/L (7-52); Albumin 2.4 g/dL (3.5-5.7); Albumin/Globulin Ratio 0.6 (1.1-2.2); Alkaline Phosphatase 55 Units/L (34-104); Aspartate Amino Transferase 12 Units/L (13-39); BUN/Creatinine Ratio 12 (6-26); Bilirubin,Total 0.2 mg/dL (0.3-1.0); Blood Urea Nitrogen 5 mg/dL (6-20); Calcium 8.1 mg/dL (8.6-10.3); Carbon Dioxide 13 mEq/L (23-29); Chloride 117 mEq/L (98-107); Chol/HDL Ratio 2.6 (0-4.9); Cholesterol 64 mg/dL (< 200); Globulin 3.9 g/dL (2.4-3.5); Glucose 80 mg/dL (70-105); HDL Cholesterol 25 mg/dL (40-59); LDL Cholesterol,Calculated 25 mg/dL (0-99); Osmolality,Calculated 284 (280-300); Phosphorous < 1.0 mg/dL (2.7-4.5); Potassium 3.3 mEq/L (3.5-5.1); Sodium 139 mEq/L (136-145); Total Protein 6.3 g/dL (6.4-8.9); Triglycerides 71 mg/dL (< 150); Troponin I 0.03 ng/mL (< 0.04); eGFR For African Americans > 60 (> 60); eGFR For Non-African Americans > 60 (> 60)
[2019-01-21 05:00] LABS: Monocytes # 0.5 K/mcL (0.0-1.3); Neutrophils # 11.9 K/mcL (1.6-8.9); Platelet Estimate Normal (Normal)
[2019-01-21] MEDS: *HR* Heparin 5,000 UNIT/ML VIAL SQ SCH ×2 (05:37→15:29)
[2019-01-21 06:07] LABS: Lymphocytes % 0.3 %
--- NOTE | 2019-01-21 06:52 | AcuteCare Surgery Consult Note ---
Date of Encounter: 01/21/19 Time of Encounter: 06:20 History of Present Illness Consult date: 01/21/19 Reason for consult: other (Retroperitoneal mass) History of present illness: The patient was seen and evaluated last night and discussed with the ICU hospitalist. The patient is seen and evaluated again this morning. She was initially admitted to the intensive care unit in diabetic ketoacidosis and sepsis. She was treated aggressively with antibiotics and intravenous insulin. She has made significant progress overnight and I am now able to get more history from her. She is been having back pain for more than 3 weeks. She is had difficulty walking. She has been lightheaded and weak. She felt that the symptoms were likely from her diabetes. She is seen in the urgent care in [place] for management of her diabetes. I personally reviewed the CAT scan of the abdomen. She has a large retroperitoneal mass involving the entire retroperitoneum from the level of the left renal vein to the left pelvis. The mass crosses both sides of the introitus fascia and displaces the left kidney anteriorly and superiorly and appears to be causing hydronephrosis on the left side. The location of the tumor correlates with her low back pain complaints. Differential diagnosis in includes mucinous producing tumors such as ovarian or mucinous adenocarcinoma. Low density liposarcoma may also take this appearance. The extent and complexity of the retroperitoneal mass is beyond the ability of this hospital to successfully treat due to the multidisciplinary complex surgical resection that may be required. I would recommend that after she is initially stabilized she be transferred to the [facility] for evaluation and management by multidisciplinary surgical oncologists Past Med Surg Social Fam HX - Past Medical History Medical history: diabetes (diagnosed last week) Psychiatric history: no psych history - Past Surgical History Surgical History: cholecystectomy - Social History Smoking Status: Never smoker Smokeless Tobacco Status: No Alcohol use: none Drug use: none - Family History Mother Living Status: Still Living Hx Family Endocrine Disorder: No Father Living Status: Hx Family Cardiac Disorders: Yes Hx Family Endocrine Disorder: No Medications and Allergies Tizanidine HCl [Zanaflex] 4 mg PO TID PRN 01/17/19 [History] metFORMIN [Glucophage] 500 mg PO BIDWM #14 tablet 01/17/19 [Rx] Amoxicillin [Amoxil] 500 mg PO BID 01/20/19 [History] Lisinopril/Hydrochlorothiazide [Lisinopril-Hctz 10-12.5 mg Tab] 1 each PO DAILY 01/20/19 [History] Pioglitazone [Actos] 30 mg PO DAILY 01/20/19 [History] Allergy/AdvReac Type Severity Reaction Status Date / Time No Known Allergies Allergy Verified 01/17/19 11:32 Review of Systems All systems PM: The remainder of the systems were reviewed and are negative General Surgery Exam Initial Vital Signs Temp Pulse Resp BP Pulse Ox 98.3 F 141 30 155/107 100 01/20/19 11:08 01/20/19 11:08 01/20/19 11:01/20/19 11:01/20/19 11:08 - General physical appearance well developed, chronically ill, other (The patient appears weak and anemic) - Neck no masses, no bruits, trachea midline, no lymphadectomy, no venous distension - Respiratory normal expansion, normal respiratory effort, clear to auscultation - Cardiovascular Cardiovascular exam: Present: RRR, no murmurs/rubs/gallops - Abdomen Abdomen general surgery: Present: bowel sounds present (The patient has moderate abdominal obesity, however, the tumor is palpable just above the anterior superior iliac spine extending posteriorly. The tumor is very firm which was unexpected based on the CAT scan interpretation), soft, non tender - Neurologic Present: CN 2-12 grossly intact, normal coordination, normal sensation - Psychiatric Psychiatric general surgery: Present: appropriate, oriented to person, oriented to place, oriented to time, speech is normal, memory intact Exam Initial Vital Signs Temp Pulse Resp BP Pulse Ox 98.3 F 141 30 155/107 100 01/20/19 11:08 01/20/19 11:08 01/20/19 11:08 01/20/19 11:08 01/20/19 11:08 Results - Labs 01/21/19 04:15 01/21/19 04:15 Abnormal lab results WBC 12.4 K/mcL (4.3-11.1) H 01/21/19 04:15 Hgb 11.1 g/dL (11.5-15.4) L 01/21/19 04:15 MCV 82.4 fL (83.0-100.0) L D 01/21/19 04:15 MCH 25.6 pg (28.0-33.3) L 01/21/19 04:15 MCHC 31.1 g/dL (31.6-35.5) L 01/21/19 04:15 MPV 9.2 fL (9.4-12.4) L 01/21/19 04:15 Band Neutrophils % 28.0 % (0-4) H 01/21/19 04:15 Neutrophils # 11.9 K/mcL (1.6-8.9) H 01/21/19 04:15 Lymphocytes # 0.0 K/mcL (0.6-4.6) L 01/21/19 04:15 Monocytes # 1.4 K/mcL (0.0-1.3) H 01/20/19 13:01 PT 15.4 Seconds (9.4-12.1) H 01/21/19 04:15 APTT 21.0 Seconds (26.0-36.0) L 01/21/19 04:15 ABG pH 7.31 pH Units (7.32-7.45) L 01/20/19 21:15 ABG pCO2 < 13 mmHg (35-45) L* 01/20/19 21:15 ABG pO2 107 mmHg (85-104) H 01/20/19 17:00 VBG pH 7.14 pH Units (7.32-7.42) L* 01/20/19 12:17 VBG pCO2 14 mmHg (41-51) L 01/20/19 12:17 VBG pO2 171 mmHg (25-50) H 01/20/19 12:17 VBG HCO3 5 mEq/L (21-27) L 01/20/19 12:17 Sodium 135 mEq/L (136-145) L 01/20/19 16:55 Potassium 3.3 mEq/L (3.5-5.1) L D 01/21/19 04:15 Chloride 117 mEq/L (98-107) H 01/21/19 04:15 Carbon Dioxide 13 mEq/L (23-29) L 01/21/19 04:15 BUN 5 mg/dL (6-20) L 01/21/19 04:15 Creatinine 0.42 mg/dL (0.60-1.20) L 01/21/19 04:15 Glucose 148 mg/dL (70-105) H 01/21/19 01:15 POC Glucose 190 mg/dL (70-99) H 01/20/19 23:56 Calcium 8.1 mg/dL (8.6-10.3) L 01/21/19 04:15 Phosphorus < 1.0 mg/dL (2.7-4.5) L* 01/21/19 04:15 Total Bilirubin 0.2 mg/dL (0.3-1.0) L 01/21/19 04:15 AST 12 Units/L (13-39) L 01/21/19 04:15 Serum Total Protein 6.3 g/dL (6.4-8.9) L 01/21/19 04:15 Albumin 2.4 g/dL (3.5-5.7) L 01/21/19 04:15 Globulin 3.9 g/dL (2.4-3.5) H 01/21/19 04:15 Albumin/Globulin Ratio 0.6 (1.1-2.2) L 01/21/19 04:15 HDL Cholesterol 25 mg/dL (40-59) L 01/21/19 04:15 Beta-Hydroxybutyric Acd > 2.00 mmol/L (0.02-0.27) H 01/20/19 15:12 Urine Clarity Turbid (Clear) A 01/20/19 11:50 Urine Protein 100 mg/dL (Neg-Trace) H 01/20/19 11:50 Urine Glucose (UA) >=1000 mg/dL (Normal) H 01/20/19 11:50 Urine Ketones >=160 mg/dL (Negative) H 01/20/19 11:50 Urine Blood Moderate (Negative) H 01/20/19 11:50 Ur Leukocyte Esterase Large (Negative) H 01/20/19 11:50 Urine Microscopic RBC 5-15 per hpf (0-3) H 01/20/19 11:50 Urine Microscopic WBC TNTC per hpf (0-3) H 01/20/19 11:50 Ur Squamous Epith Cells Moderate per lpf (None-Few) H 01/20/19 11:50 Urine Yeast Moderate per hpf (None Seen) H 01/20/19 11:50 Ur Culture Indicated? YES (NO) A 01/20/19 11:50 Diabetes panel 01/20/19 01/20/19 01/20/19 Range/Units 12:03 16:55 20:59 Sodium 132 L 135 L 139 (136-145) mEq/L Potassium 3.6 4.2 2.9 L D (3.5-5.1) mEq/L Chloride 102 110 H 112 H (98-107) mEq/L Carbon Dioxide 4 L* 5 L* 6 L* (23-29) mEq/L BUN 12 9 7 (6-20) mg/dL Creatinine 0.76 0.59 L 0.58 L (0.60-1.20) mg/dL Glucose 432 H 315 H 277 H (70-105) mg/dL Calcium 9.3 8.4 L 8.4 L (8.6-10.3) mg/dL AST 7 L (13-39) Units/L ALT 8 (7-52) Units/L Alkaline Phosphatase 82 (34-104) Units/L Albumin 3.0 L (3.5-5.7) g/dL Triglycerides (< 150) mg/dL HDL Cholesterol (40-59) mg/dL 01/21/19 01/21/19 Range/Units 01:15 04:15 Sodium 141 139 (136-145) mEq/L Potassium 2.6 L 3.3 L D (3.5-5.1) mEq/L Chloride 116 H 117 H (98-107) mEq/L Carbon Dioxide 14 L 13 L (23-29) mEq/L BUN 5 L 5 L (6-20) mg/dL Creatinine 0.51 L 0.42 L (0.60-1.20) mg/dL Glucose 148 H 80 (70-105) mg/dL Calcium 8.4 L 8.1 L (8.6-10.3) mg/dL AST 12 L (13-39) Units/L ALT 9 (7-52) Units/L Alkaline Phosphatase 55 (34-104) Units/L Albumin 2.4 L (3.5-5.7) g/dL Triglycerides 71 (< 150) mg/dL HDL Cholesterol 25 L (40-59) mg/dL Calcium panel 01/20/19 01/20/19 01/20/19 Range/Units 12:03 16:55 20:59 Calcium 9.3 8.4 L 8.4 L (8.6-10.3) mg/dL Phosphorus 1.6 L (2.7-4.5) mg/dL Albumin 3.0 L (3.5-5.7) g/dL 01/21/19 01/21/19 Range/Units 01:15 04:15 Calcium 8.4 L 8.1 L (8.6-10.3) mg/dL Phosphorus < 1.0 L* < 1.0 L* (2.7-4.5) mg/dL Albumin 2.4 L (3.5-5.7) g/dL Pituitary panel 01/20/19 01/20/19 01/20/19 Range/Units 12:03 16:55 20:59 Sodium 132 L 135 L 139 (136-145) mEq/L Potassium 3.6 4.2 2.9 L D (3.5-5.1) mEq/L Chloride 102 110 H 112 H (98-107) mEq/L Carbon Dioxide 4 L* 5 L* 6 L* (23-29) mEq/L BUN 12 9 7 (6-20) mg/dL Creatinine 0.76 0.59 L 0.58 L (0.60-1.20) mg/dL Glucose 432 H 315 H 277 H (70-105) mg/dL Calcium 9.3 8.4 L 8.4 L (8.6-10.3) mg/dL 01/21/19 01/21/19 Range/Units 01:15 04:15 Sodium 141 139 (136-145) mEq/L Potassium 2.6 L 3.3 L D (3.5-5.1) mEq/L Chloride 116 H 117 H (98-107) mEq/L Carbon Dioxide 14 L 13 L (23-29) mEq/L BUN 5 L 5 L (6-20) mg/dL Creatinine 0.51 L 0.42 L (0.60-1.20) mg/dL Glucose 148 H 80 (70-105) mg/dL Calcium 8.4 L 8.1 L (8.6-10.3) mg/dL Adrenal panel 01/20/19 01/20/19 01/20/19 Range/Units 12:03 16:55 20:59 Sodium 132 L 135 L 139 (136-145) mEq/L Potassium 3.6 4.2 2.9 L D (3.5-5.1) mEq/L Chloride 102 110 H 112 H (98-107) mEq/L Carbon Dioxide 4 L* 5 L* 6 L* (23-29) mEq/L BUN 12 9 7 (6-20) mg/dL Creatinine 0.76 0.59 L 0.58 L (0.60-1.20) mg/dL Glucose 432 H 315 H 277 H (70-105) mg/dL Calcium 9.3 8.4 L 8.4 L (8.6-10.3) mg/dL Total Bilirubin 0.3 (0.3-1.0) mg/dL AST 7 L (13-39) Units/L ALT 8 (7-52) Units/L Alkaline Phosphatase 82 (34-104) Units/L Albumin 3.0 L (3.5-5.7) g/dL 01/21/19 01/21/19 Range/Units 01:15 04:15 Sodium 141 139 (136-145) mEq/L Potassium 2.6 L 3.3 L D (3.5-5.1) mEq/L Chloride 116 H 117 H (98-107) mEq/L Carbon Dioxide 14 L 13 L (23-29) mEq/L BUN 5 L 5 L (6-20) mg/dL Creatinine 0.51 L 0.42 L (0.60-1.20) mg/dL Glucose 148 H 80 (70-105) mg/dL Calcium 8.4 L 8.1 L (8.6-10.3) mg/dL Total Bilirubin 0.2 L (0.3-1.0) mg/dL AST 12 L (13-39) Units/L ALT 9 (7-52) Units/L Alkaline Phosphatase 55 (34-104) Units/L Albumin 2.4 L (3.5-5.7) g/dL All other labs normal. - Imaging CT scan - abdomen: image reviewed (I personally reviewed the CAT scan of the abdomen. Findings are in nature. I. Extensive retroperitoneal mass involving both sides of jaundice fascia and likely the iliopsoas muscles and possibly the oblique musculature above the anterior superior iliac spine. Differential diagnosis includes mucinous producing tumors such as mucinous adenocarcinoma or ovarian cancer. Differential also includes low-density liposarcoma) Consult Discharge Plan - Plan Referrals: Vinny Johnson MD [Primary Care Provider] -
[2019-01-21] MEDS ORDERED: cefTRIAXone 2,000 MG in Water for inj. (sterile) 20 ML IVP SCH (08:00)
[2019-01-21 10:22] LABS: BUN/Creatinine Ratio 13 (6-26); Blood Urea Nitrogen 6 mg/dL (6-20); Calcium 8.3 mg/dL (8.6-10.3); Carbon Dioxide 15 mEq/L (23-29); Chloride 113 mEq/L (98-107); Glucose 291 mg/dL (70-105); Osmolality,Calculated 288 (280-300); Phosphorous 2.2 mg/dL (2.7-4.5); Potassium 3.8 mEq/L (3.5-5.1); Sodium 135 mEq/L (136-145); eGFR For African Americans > 60 (> 60); eGFR For Non-African Americans > 60 (> 60)
[2019-01-21] MEDS ORDERED: *HR* Dextrose 50 % in Water (Syg) 50 ML SYRINGE IVP PRN (11:02)
[2019-01-21] MEDS ORDERED: Dextrose Gel 15 GM/37.5 ML TUBE PO PRN ×2 (11:02)
[2019-01-21] MEDS ORDERED: D5% in Water 1,000 ML IVC PRN (11:02)
[2019-01-21] MEDS ORDERED: Insulin DETEMIR 100 UNIT/ML X5UNITS SQ SCH ×2 (11:05→21:00)
[2019-01-21] MEDS ORDERED: 0.9 % Sodium Chloride w KCl 20 MEQ/1,000 ML MLS IVC SCH (11:15)
[2019-01-21] MEDS: Insulin LISPRO 300 UNITS/3 ML VIAL SQ SCH ×2 (11:42→16:33)
--- NOTE | 2019-01-21 11:46 | Discharge Summary ---
Orders not resulted at time of discharge: Pending orders 01/20/19 11:50 Culture,Urine [RM] Stat 01/20/19 12:03 Culture,Blood [BC] Stat Date of Encounter: 01/21/19 Time of Encounter: 09:00 - Discharge Diagnosis (1) DKA (diabetic ketoacidoses) Priority: Primary Status: Resolved Assessment and Plan: 1. Anion gap is closed. 2. Insulin drip stopped this morning. 3. SQ insulin and SSI started. 4. Continue MIV fluids and monitor/correct electrolytes. 5. Will need diabetic education. Qualifiers: Diabetes mellitus type: type 1 Diabetes mellitus complication detail: without coma Qualified Code(s): E10.10 - Type 1 diabetes mellitus with ketoacidosis without coma (2) Sepsis Priority: Primary Status: Acute Assessment and Plan: 1. Likely due to urine source. 2. WBC trending down. 3. Awaiting culture results. 4. Continue Rocephin 2 grams IV daily. 5. Lactates have been normal; BP preserved; fluid boluses given yesterday per sepsis and DKA protocols. Qualifiers: Sepsis type: sepsis due to unspecified organism Sepsis acute organ dysfunction status: without acute organ dysfunction Qualified Code(s): A41.9 - Sepsis, unspecified organism (3) UTI (urinary tract infection) Priority: Primary Status: Acute Assessment and Plan: 1. As above for sepsis. 2. Continue antibiotics and follow culture results. Qualifiers: Urinary tract infection type: acute pyelonephritis Qualified Code(s): N10 - Acute pyelonephritis (4) Atrial fibrillation with rapid ventricular response Priority: Primary Status: Resolved Assessment and Plan: 1. Currently in NSR. 2. She had two short paroxysms of atrial fibrillation which resolved after correcting hypokalemia. 3. Monitor on telemetry. 4. May need initiation of anti-coagulation if persists/recurs after correcting electrolytes. No prior history of atrial fibrillation. Currently in NSR. 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 Transfer to [facility] today for work-up, diagnosis, and surgical intervention as recommended by our surgeon (Dr. Briseno). (6) DVT prophylaxis Priority: Primary Status: Acute Assessment and Plan: 1. Heparin SQ. Hospital course: Ms. Matta is a 53 year old female who presented to our ER yesterday for concerns of high glucose, severe dehydration, and profound weakness. She was found to have evidence of DKA and sepsis. She was fluid resuscitated in the ER, started on insulin drip, and received antibiotics prior to admission request to the ICU. I was contacted by ER staff to admit patient to intensive care unit. I saw and interviewed patient in the ER with present family members. She was critically ill yesterday, mostly from her DKA. She did appear septic as well, but her blood pressure was preserved and her lactates were normal. We continued her insulin drip, corrected her electrolytes, and continued her fluids. She did undergo CT dissection study in the ER for complaints of back pain. 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 I consulted our surgeon, Dr. Briseno, who saw patient and reviewed the CT images with me. He recommends transfer to [facility] as she will likely need surgery for diagnosis and debulking/resection of this tumor from a multifaceted approach including general surgery, urology, and likely gynecologic oncology. We kept the patient here in ICU overnight and treated her DKA and sepsis. From a hemodynamic and medical standpoint, she is stabilized now and is no longer in need of an ICU bed. I am switching her to subcutaneous insulin, continuing IV fluids, stopping her insulin drip, and continuing her antibiotics for her UTI/sepsis. I then contacted [facility] today as advised by Dr. Briseno requesting a transfer for further diagnosis, workup, and surgery as recommended. I discussed the case and information with a pharmacy benefits coordinator at [facility] and they have accepted patient in transfer to Dr. Denson's service at the [facility]. Once a bed is available, we will coordinate transport and transfer patient to [facility]. I updated the patient and her and family of the above discussion and plan, and they are in full agreement. - Time Spent with Patient Total time spent providing and/or coordinating discharge services: Time spent: Greater than 30 minutes (45 minutes total including assessment of patient, treating patient, and coordinating transfer) - Discharge Medications Prescriptions: No Action Tizanidine HCl [Zanaflex] 4 mg PO TID PRN PRN Reason: Muscle Spasm metFORMIN [Glucophage] 500 mg PO BIDWM #14 tablet Lisinopril/Hydrochlorothiazide [Lisinopril-Hctz 10-12.5 mg Tab] 1 each PO DAILY Pioglitazone [Actos] 30 mg PO DAILY Amoxicillin [Amoxil] 500 mg PO BID Home Medications: Tizanidine HCl [Zanaflex] 4 mg PO TID PRN 01/17/19 [History] metFORMIN [Glucophage] 500 mg PO BIDWM #14 tablet 01/17/19 [Rx] Amoxicillin [Amoxil] 500 mg PO BID 01/20/19 [History] Lisinopril/Hydrochlorothiazide [Lisinopril-Hctz 10-12.5 mg Tab] 1 each PO DAILY 01/20/19 [History] Pioglitazone [Actos] 30 mg PO DAILY 01/20/19 [History] Allergies/Adverse Reactions: Allergy/AdvReac Type Severity Reaction Status Date / Time No Known Allergies Allergy Verified 01/17/19 11:32 Date of admission: 01/20/19 15:31 Primary care physician: Vinny Johnson MD Consults: 01/20/19 15:52 Consult to Surgery [CONS] Stat Consulting Provider: [facility] Reason for Consult: mucinous tumor Time Notified: 15:52 Call Completed: Yes 01/20/19 17:11 Consult to Nutrition [CONS] Routine Comment: Consulting Provider: NUTRITION Reason for Dietary Consult: Diet Education Discharging clinician: Brian Lunsford Anticipated date of discharge: 01/21/19 - Constitutional Vitals: Temp Pulse Resp BP Pulse Ox 99.0 F 115 26 138/92 97 01/21/19 11:13 01/21/19 09:15 01/21/19 09:15 01/21/19 09:15 01/21/19 09:15 General appearance: Present: A&O X 3, no acute distress, answers questions appropriately Exam: much better hydrated, pink, and perfused - Head Head exam: Present: atraumatic, normal inspection - Eye Eye exam: Present: EOMI, PERRL. Absent: scleral icterus Pupils: Present: normal accommodation - ENT ENT exam: Present: mucous membranes dry, normal exam - Neck Neck exam general surgery: Present: full ROM, supple, trachea midline. Absent: tenderness, nuchal rigidity, thyromegaly - Respiratory Respiratory exam: Present: CTAB. Absent: chest wall tenderness, rales, rhonchi, wheezes - Cardiovascular Cardiovascular exam: Present: RRR, +S1, +S2, tachycardia (HR 105). Absent: diastolic murmur, systolic murmur - GI/Abdominal GI/Abdominal exam: Present: normal bowel sounds, soft. Absent: guarding, hepatomegaly, rebound, splenomegaly, tenderness - Extremities Exam Extremities exam: Present: full ROM, normal capillary refill, warm, radial pulses palpable and symmetrical. Absent: calf tenderness, pedal edema, tenderness - Back Exam Back exam: Present: CVA tenderness (L). Absent: CVA tenderness (R) - Neurological Exam Neurological exam: Present: alert, CN II-XII intact, oriented X3, no focal deficits, strengths equal and symetr throughout - Psychiatric Psychiatric exam: Present: normal affect, normal mood - Skin Skin exam: Present: dry, intact, warm - Patient Status Disposition: Transfer [facility] Condition: Serious Functional capacity at discharge: bed bound Overall status at discharge: patient is progressing back to baseline - Discharge Instructions Follow Up With: Vinny Johnson MD [Primary Care Provider] - Forms: ED Satisfaction Letter, Work/School Release - Diet and Activity Diet: diabetic diet
[2019-01-21] MEDS: 0.9 % Sodium Chloride w KCl 20 MEQ/1,000 ML MLS IVC SCH ×2 (11:48→15:29)
[2019-01-21 17:53] VITALS: BP 123/68
--- NOTE | 2019-01-22 10:15 | Electrocardiograph Report ---
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
--- NOTE | 2019-01-22 10:18 | Electrocardiograph Report ---
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
[2019-01-22 10:23] LABS: Estimated Average Glucose 450 mg/dl
--- NOTE | 2019-01-22 10:25 | Electrocardiograph Report ---
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
--- NOTE | 2019-01-23 15:52 | Electrocardiograph Report ---
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
[2019-01-24 19:56] LABS: Acinetobacter baumannii by PCR Not Detected (Not Detect); Candida albicans by PCR Not Detected (Not Detect); Candida glabrata by PCR DETECTED (Not Detect); Candida krusei by PCR Not Detected (Not Detect); Candida parapsilosis by PCR Not Detected (Not Detect); Candida tropicalis by PCR Not Detected (Not Detect); Enterobacter cloacae Cmplx PCR Not Detected (Not Detect); Enterobacteriaceae by PCR Not Detected (Not Detect); Enterococcus by PCR Not Detected (Not Detect); Escherichia coli by PCR Not Detected (Not Detect); Klebsiella oxytoca by PCR Not Detected (Not Detect); Klebsiella pneumoniae by PCR Not Detected (Not Detect); Proteus by PCR Not Detected (Not Detect); Pseudomonas aeruginosa by PCR Not Detected (Not Detect); Serratia marcescens by PCR Not Detected (Not Detect); Staphylococcus aureus by PCR Not Detected (Not Detect); Staphylococcus by PCR Not Detected (Not Detect); Streptococcus agalactiae(B)PCR Not Detected (Not Detect); Streptococcus by PCR Not Detected (Not Detect); Streptococcus pneumoniae PCR Not Detected (Not Detect); Streptococcus pyogenes (A) PCR Not Detected (Not Detect); blaKPC Carbapenem-Resist Gene Not Detected (Not Detect); mecA Methicillin-Resist Gene Not Detected (Not Detect); vanA/B Vancomycin-Resist Genes Not Detected (Not Detect)
--- NOTE | 2019-01-29 09:24 | Electrocardiograph Report ---
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
== END 2019-01-21 17:32 | disposition other institution (70) ==
LOC: EMEROOARM 10:41 → ICNU 15:31
PROVIDERS: ADMIT Pediatrics; ATTEND Pediatrics